=== PATIENT | female | born 1960 | race Caucasian/White ===

== ENCOUNTER 2021-05-10 06:48 | Outpatient (CLI) | payer OTHER | END 2021-05-10 06:49 | disposition home or self-care (01) | LOC: BICMRI 06:48 | PROVIDERS: ATTEND Family Medicine | DX: M54.2 Cervicalgia (principal); M48.02 Spinal stenosis, cervical region | CPT/HCPCS: 72141 ==

== ENCOUNTER 2021-12-17 11:35 | Outpatient (CLI) | payer OTHER ==
[2021-12-17 12:23] LABS: Hemoglobin 14.3 g/dL (12.0-15.5); Mean Corpuscular HGB CONC 32.9 g/dL (32.0-36.0); Mean Corpuscular Hemoglobin 31.7 pg (27.0-33.0); Mean Corpuscular Volume 96.2 fl (81.6-98.3); Platelet Count 336 10x3/uL (150-450); RBC Distribution Width 12.7 % (11.5-14.5); Red Blood Cell (RBC) Count 4.51 10x6/uL (3.90-5.03); White Blood Cell (WBC) Count 8.5 10x3/uL (3.5-10.5)
[2021-12-17 12:42] LABS: Anion Gap 15 mmol/L (10-20); BUN (Urea Nitrogen) 19 mg/dL (9.8-20.1); Calc. Creatinine Clearance 0 mL/min (70-130); Calcium 9.8 mg/dL (7.8-10.44); Carbon Dioxide 27 mmol/L (22-29); Chloride 102 mmol/L (98-107); Glucose 82 mg/dL (70-105); Potassium 4.4 mmol/L (3.5-5.1); Sodium 140 mmol/L (136-145)
[2021-12-17 23:59] LABS: SARS-CoV-2 PCR by NAA Not Detected (NotDetected)
== END 2021-12-17 11:36 | disposition home or self-care (01) ==
LOC: LABBT 11:35
PROVIDERS: ATTEND Oral & Maxillofacial Surgery
DX: Z01.818 Encounter for other preprocedural examination (principal); Z20.822 Contact with and (suspected) exposure to COVID-19
CPT/HCPCS: 80048; 85027; 93005; 93010; U0003; U0005

== ENCOUNTER 2021-12-20 06:25 | Observation (INO) | payer OTHER ==
[2021-12-17 12:34] VITALS: BMI 35.5
[2021-12-20] MEDS ORDERED: fentaNYL Citrate/PF 100 MCG/2 ML SYRINGE ONE (06:51)
[2021-12-20] MEDS ORDERED: Dexmedetomidine 200 MCG/2 ML VIAL ONE (06:51)
[2021-12-20] MEDS ORDERED: ceFAZolin (BATCH) 2 GM/100 ML BAG ONE (08:26)
[2021-12-20] MEDS ORDERED: Rocuronium Bromide 10 MG/ML (10ML VIAL) ONE (08:35)
[2021-12-20] MEDS ORDERED: Lidocaine 1% PF 5 ML VIAL ONE (08:35)
[2021-12-20] MEDS ORDERED: PROPOFOL 200 MG/20 ML VIAL ONE (08:35)
[2021-12-20] MEDS ORDERED: Dexamethasone 20 MG/5 ML VIAL ONE (08:35)
[2021-12-20] MEDS ORDERED: Ketorolac Tromethamine 30 MG/ML VIAL ONE (08:35)
[2021-12-20] MEDS ORDERED: Glycopyrrolate 0.2 MG/ML 5 ML SYRINGE ONE (08:35)
[2021-12-20] MEDS ORDERED: Ondansetron PF 4 MG/2 ML Vial ONE (08:35)
[2021-12-20] MEDS ORDERED: Morphine 4 MG/ML VIAL SLOW IVP PRN (10:30)
[2021-12-20] MEDS ORDERED: diphenhydrAMINE 25 MG CAP PO PRN (10:30)
[2021-12-20] MEDS ORDERED: Promethazine HCl 25 MG/ML VIAL IM PRN (10:30)
[2021-12-20] MEDS ORDERED: Milk Of Magnesia 30 ML UDCUP PO PRN (10:30)
[2021-12-20] MEDS ORDERED: Cyclobenzaprine 10 MG TAB PO PRN (10:30)
[2021-12-20] MEDS ORDERED: Mag-Al 1200 mg/1200 mg/30 ML UDCUP PO PRN (10:30)
[2021-12-20] MEDS ORDERED: diphenhydrAMINE 50 MG/ML VIAL IVP PRN (10:30)
[2021-12-20] MEDS ORDERED: Promethazine 25 MG TAB PO PRN (10:30)
[2021-12-20] MEDS ORDERED: Ondansetron PF 4 MG/2 ML Vial IVP PRN (10:30)
[2021-12-20] MEDS ORDERED: Acetaminophen/Codeine 30-300mg Tablet PO PRN (10:30)
[2021-12-20] MEDS ORDERED: Morphine 2 MG/ML VIAL SLOW IVP PRN (10:30)
[2021-12-20] MEDS ORDERED: Promethazine HCl 12.5 MG SUPP PR PRN (10:30)
[2021-12-20] MEDS ORDERED: traMADol HCl 50 MG TAB PO PRN ×2 (10:30)
[2021-12-20] MEDS ORDERED: hydrALAZINE 20 MG/ML VIAL ONE (10:51)
[2021-12-20] MEDS ORDERED: Fentanyl 100 MCG/2 ML VIAL ONE (11:07)
[2021-12-20] MEDS ORDERED: hydrALAZINE 20 MG/ML VIAL SLOW IVP SCH (11:15)
[2021-12-20] MEDS: Sodium Chloride 0.9% 1,000 ML IV SCH (12:55)
[2021-12-20] MEDS: Acetaminophen/Codeine 30-300mg Tablet PO PRN ×3 (15:24→21:14)
[2021-12-20] MEDS: ceFAZolin (BATCH) 2 GM in Premix Bag 1 BAG IVPB SCH ×2 (15:26→21:16)
[2021-12-20] MEDS ORDERED: tiZANidine HCl 4 MG TAB PO PRN (19:30)
[2021-12-21] MEDS: Sodium Chloride 0.9% 1,000 ML IV SCH
[2021-12-21] MEDS: ceFAZolin (BATCH) 2 GM in Premix Bag 1 BAG IVPB SCH (05:51)
[2021-12-21] MEDS ORDERED: Thyroid 60 MG TAB PO SCH (06:00)
[2021-12-21] MEDS ORDERED: Thyroid 30 MG TAB PO SCH (06:00)
[2021-12-21 07:58] VITALS: BP 137/73; TEMP 98
[2021-12-21] MEDS ORDERED: LYSINE FS SCH (09:00)
[2021-12-21] MEDS ORDERED: Fish Oil 1,000 MG CAP PO SCH (09:00)
[2021-12-21] MEDS ORDERED: Multivit, Therapeutic 1 TAB PO SCH (09:00)
[2021-12-21] MEDS ORDERED: Cyanocobalamin (Vitamin B-12) 1,000 MCG TAB PO SCH (09:00)
[2021-12-21] MEDS ORDERED: Cholecalciferol 1,000 UNITS (25 MCG) TAB PO SCH (09:00)
[2021-12-21] MEDS ORDERED: Venlafaxine HCl XR 150 MG CAP PO SCH (09:00)
[2021-12-21] MEDS ORDERED: Zinc Sulfate 220 MG CAP PO SCH (09:00)
[2021-12-21] MEDS: Acetaminophen/Codeine 30-300mg Tablet PO PRN (10:30)
== END 2021-12-21 10:46 | disposition home or self-care (01) ==
LOC: SDC 06:25 → SURG B 10:18
PROVIDERS: ADMIT Neurological Surgery; ATTEND Neurological Surgery
PROC: 0RG20A0 Fusion of 2 or more Cervical Vertebral Joints with Interbody Fusion Device, Anterior Approach, Anterior Column, Open Approach (ICD-10-PCS; principal; 2021-12-20)
DX: M50.122 Cervical disc disorder at C5-C6 level with radiculopathy (principal); M48.02 Spinal stenosis, cervical region; E03.9 Hypothyroidism, unspecified; Z79.890 Hormone replacement therapy; Z79.899 Other long term (current) drug therapy
CPT/HCPCS: 76000; 96374; 96376; C1713; C1776; G0378; J0360; J0690; J1100; J1885; J2405; J2704; J3010

== ENCOUNTER 2022-01-06 12:05 | Outpatient (CLI) | payer OTHER | END 2022-01-06 12:06 | disposition home or self-care (01) | LOC: TBSIIMAG 12:05 | PROVIDERS: ATTEND Neurological Surgery | DX: M47.22 Other spondylosis with radiculopathy, cervical region (principal); M79.89 Other specified soft tissue disorders; Z98.890 Other specified postprocedural states | CPT/HCPCS: 72040 ==

== ENCOUNTER 2022-07-29 09:31 | Emergency (ER) | payer OTHER ==
[2022-07-29 10:22] LABS: #Eosinphils 0.4 thou/uL (0.0-0.7); #Monocytes 0.6 thou/uL (0.11-0.59); #Neutrophils 2.7 thou/uL (1.40-6.50); %Basophils 0.2 % (0.0-1.0); %Eosinophils 5.8 % (0.0-10.0); %Lymphocytes 44.8 % (21.0-51.0); %Monocytes 9.6 % (0.0-10.0); %Neutrophils 39.7 % (42.0-75.0); Hemoglobin 13.6 g/dL (12.0-16.0); Mean Corpuscular HGB CONC 32.7 g/dL (32.0-36.0); Mean Corpuscular Hemoglobin 31.8 pg (27.0-31.0); Mean Corpuscular Volume 97.2 fl (78.0-98.0); Mean Platelet Volume 7.1 fL (7.4-10.4); Platelet Count 294 10x3/uL (130-400); RBC Distribution Width 11.8 % (11.5-14.5); Red Blood Cell (RBC) Count 4.28 mill/uL (4.20-5.40); White Blood Cell (WBC) Count 6.7 10x3/uL (4.8-10.8)
[2022-07-29 10:43] LABS: ALT (SGPT) 23 U/L (8-55); AST (SGOT) 25 U/L (5-34); Alkaline Phosphatase 38 U/L (40-110); Anion Gap 10 mmol/L (10-20); BUN (Urea Nitrogen) 16 mg/dL (9.8-20.1); Bilirubin, Total 0.4 mg/dL (0.2-1.2); Calc. Creatinine Clearance 0 mL/min (70-130); Calcium 9.5 mg/dL (7.8-10.44); Carbon Dioxide 28 mmol/L (22-29); Chloride 103 mmol/L (98-107); Estimated GFR 78; Globulin 2.6 g/dL (2.4-3.5); Glucose 99 mg/dL (70-105); Potassium 4.4 mmol/L (3.5-5.1); Protein, Total 6.6 g/dL (6.0-8.3); Sodium 137 mmol/L (136-145)
[2022-07-29] MEDS ORDERED: Lidocaine 1% PF 5 ML VIAL ONE (10:44)
[2022-07-29] MEDS ORDERED: cefTRIAXone\\ROCEPHIN 1 GM VIAL ONE (11:23)
== END 2022-07-29 12:17 | disposition home or self-care (01) ==
LOC: ERS 09:31
DX: M70.22 Olecranon bursitis, left elbow (principal)
CPT/HCPCS: 20605; 36415; 80053; 85025; 85652; 86140; 96372; J0696